=== PATIENT | male | born 1990 | race Caucasian/White ===

== ENCOUNTER 2016-10-27 09:58 | Emergency (ER) | payer SELFPAY | END 2016-10-27 11:35 | disposition home or self-care (01) | LOC: CED 09:58 | DX: T40.1X1A Poisoning by heroin, accidental (unintentional), initial encounter (principal); F17.200 Nicotine dependence, unspecified, uncomplicated; Z88.2 Allergy status to sulfonamides | CPT/HCPCS: 99282 ==